=== PATIENT | male | born 1955 | race Caucasian/White ===

== ENCOUNTER 2020-09-17 09:35 | Day surgery (SDC) | payer OTHER ==
[~2020-09-17] VITALS: Ht 172.7 cm; Wt 126.4 kg
[2020-09-17 09:50] VITALS: BP 178/93
[2020-09-17] MEDS ORDERED: fentaNYL/PF 50MCG/1 ML 2ML syringe ONE (10:04)
[2020-09-17] MEDS ORDERED: iohexol 300 MG/1 ML 50ml polymer ONE (10:05)
[2020-09-17] MEDS ORDERED: MIDAZolam 1 MG/ML 5ML VIAL ONE (10:05)
[2020-09-17] MEDS ORDERED: diphenhydrAMINE 50 mg/ml inj ONE (10:05)
[2020-09-17] MEDS ORDERED: glucagon, human recombinant 1mg kit ONE (10:05)
[2020-09-17] MEDS ORDERED: LIDOcaine Viscous 15ml cup ONE (10:05)
[2020-09-17] MEDS ORDERED: levoFLOXACIN-Levaquin 500mg/D5 100 ML IV ONE (10:49)
[2020-09-17 11:04] VITALS: BP 122/69
[2020-09-17 11:14] VITALS: BP 121/58
[2020-09-17] MEDS ORDERED: PANT-47 PO (11:17)
[2020-09-17 11:24] VITALS: BP 112/67
[2020-09-17 11:34] VITALS: BP 114/51
== END 2020-09-17 12:03 | disposition home or self-care (01) ==
LOC: GI LAB 09:35
PROVIDERS: ATTEND Internal Medicine Gastroenterology
DX: K80.50 Calculus of bile duct without cholangitis or cholecystitis without obstruction (principal); R93.2 Abnormal findings on diagnostic imaging of liver and biliary tract
CPT/HCPCS: 43262; 43264; C1769; J1200; J1610; J1956; J2250; J3010; J7040; Q9967; 99152; 99153; A4620